=== PATIENT | female | born 1970 | race Caucasian/White ===

== ENCOUNTER 2016-12-30 11:29 | Outpatient (CLI) | payer BC ==
[2015-08-04 13:28] VITALS: BP 138/67
[2016-12-30 11:43] LABS: BASOPHILS % 0.4 (0.0-1.5); EOSINOPHILS % 1.3 % (0.0-6.8); MEAN CORPUSCULAR VOLUME 88.7 fl (80.0-100.0); MONOCYTES % 4.2 % (0.0-11.0); NEUTROPHILS # 4.1 # k/uL (1.4-7.7)
[2016-12-30 12:07] LABS: eGFR (African) > 60; eGFR (Non-African) > 60
[2016-12-30 20:41] LABS: VITAMIN D, 25-HYDROXY 28 ng/mL (30-100)
== END 2016-12-30 11:30 ==
LOC: LAB 11:29
PROVIDERS: ATTEND Physician Assistant
DX: R53.83 Other fatigue (principal); R30.0 Dysuria
CPT/HCPCS: 36415; 80053; 82306; 82607; 84443; 85025; 87086; 87186

== ENCOUNTER 2017-05-03 16:25 | Outpatient (CLI) | payer BC ==
[2015-08-04 13:28] VITALS: BP 138/67
[2017-05-03 16:50] LABS: BASOPHILS % 0.3 (0.0-1.5); EOSINOPHILS % 1.6 % (0.0-6.8); MEAN CORPUSCULAR HEMOGLOBIN 31.1 pg (28.0-34.0); NEUTROPHILS # 4.7 # k/uL (1.4-7.7)
[2017-05-03 17:10] LABS: eGFR (African) > 60; eGFR (Non-African) > 60
== END 2017-05-03 16:26 ==
LOC: LAB 16:25
PROVIDERS: ATTEND Physician Assistant
DX: R10.11 Right upper quadrant pain (principal)
CPT/HCPCS: 36415; 80053; 85025

== ENCOUNTER 2017-05-08 07:46 | Outpatient (CLI) | payer BC ==
[2015-08-04 13:28] VITALS: BP 138/67
--- NOTE | 2017-05-08 13:52 | Diagnostic Imaging Report ---
MARTÍN GONZALES [facility] [address] [facility].[address] [address] Report Submission Date: May 08, 2017 8:42:53 AM SPOT WELDER Patient Study Name: CHRISTINA ESTRELLA Date: May 08, 2017 8:06:01 AM SPOT WELDER Modality Type: US Gender: F Description: : 72 Institution: [facility] Physician: MARTÍN GONZALES Examination: Ultrasound gallbladder History: Epigastric discomfort Findings: Sonographic evaluation of the right upper quadrant demonstrates the gallbladder without stones or sludge. Gallbladder wall measures 2.6 mm. Common bile duct measures 2.0 mm. No intrahepatic biliary dilation. Liver demonstrates increased echogenicity. No mass or cyst. Normal flow on color analysis. Normal Doppler waveforms. Right kidney measures 10.5 cm in length. No cortical mass or cyst. No hydronephrosis. Pancreatic region without gross irregularity. Impression: No gallstone or obstruction. Fatty liver. Electronically signed on May 08, 2017 8:42:53 AM SPOT WELDER by: Kartik RENEE
== END 2017-05-08 07:47 ==
LOC: RAD 07:46
PROVIDERS: ATTEND Physician Assistant
DX: R10.11 Right upper quadrant pain (principal)
CPT/HCPCS: 76705

== ENCOUNTER 2017-05-12 11:40 | Outpatient (CLI) | payer BC ==
[2015-08-04 13:28] VITALS: BP 138/67
[2017-05-12 11:53] LABS: BASOPHILS % 0.3 (0.0-1.5); EOSINOPHILS % 2.7 % (0.0-6.8); MEAN CORPUSCULAR VOLUME 89.6 fl (80.0-100.0); MONOCYTES % 5.3 % (0.0-11.0); NEUTROPHILS # 5.1 # k/uL (1.4-7.7)
[2017-05-12 12:13] LABS: eGFR (African) > 60; eGFR (Non-African) > 60
--- NOTE | 2017-05-12 13:25 | Diagnostic Imaging Report ---
MARTÍN GONZALES [facility] [address] [facility] [address] [place] [address]. [id number] Report Submission Date: May 12, 2017 1:09:19 PM COMPUTERIZED TABLE CUTTER Patient Study Name: CHRISTINA ESTRELLA Date: May 12, 2017 12:12:25 PM COMPUTERIZED TABLE CUTTER Modality Type: CT\SR Gender: F Description: CT ABD & PELVIS W/ CON : 72 Institution: [facility] Physician: MARTÍN GONZALES Examination: CT Abdomen/pelvis History: Abdominal discomfort Comparison exams: None available Technique: CT Abdomen/pelvis with IV protocol. Findings: Liver demonstrates diffuse low attenuation. No central lesion. Spleen , adrenals, pancreas, kidneys and gallbladder are without gross irregularity. No abnormal enhancement. No gallstone. No suspicious renal calcifications. Few cortical cyst. Ureters are nondilated in their course through the abdomen and pelvis. No central calcification. Bladder margin within normal limits. Mild atherosclerotic disease involving the abdominal aorta. No aneurysm. Cardiac silhouette not enlarged. No pericardial effusion. Bowel unopacified limiting evaluation. No abnormal dilation. Stool within the large bowel limiting sensitivity. No mesenteric inflammatory changes or free fluid. Appendix is visualized and is without inflammatory changes. Few sigmoid diverticula. No adjacent inflammation. Osseous structures within normal limits. Lung bases without infiltrate. No effusion. Left lung base granuloma. Impression: No abdominal mass or acute appearing inflammatory process. Fatty liver. No gallstone. No suspicious renal calcifications. No abnormal ureteric dilation. No abnormal bowel dilation or inflammation. Sigmoid diverticulosis. No evidence for acute diverticulitis. Electronically signed on May 12, 2017 1:09:19 PM COMPUTERIZED TABLE CUTTER by: Kartik RENEE
== END 2017-05-12 11:42 ==
LOC: LAB 11:40
PROVIDERS: ATTEND Physician Assistant
DX: R10.9 Unspecified abdominal pain (principal); R11.10 Vomiting, unspecified
CPT/HCPCS: 36415; 74177; 80053; 83690; 85025; Q9967

== ENCOUNTER 2018-06-29 17:14 | Outpatient (CLI) | payer OTHER ==
[2015-08-04 13:28] VITALS: BP 138/67
== END 2018-06-29 17:16 ==
LOC: LABRHC 17:14
PROVIDERS: ATTEND Nurse Practitioner Family
DX: R35.0 Frequency of micturition (principal); N39.0 Urinary tract infection, site not specified
CPT/HCPCS: 87086; 87186

== ENCOUNTER 2018-12-05 13:40 | Outpatient (CLI) | payer OTHER ==
[2015-08-04 13:28] VITALS: BP 138/67
[2018-12-05 14:12] LABS: BASOPHILS % 0.7 % (0.0-1.5); NEUTROPHILS # 5.8 # k/uL (1.4-7.7)
[2018-12-05 14:18] LABS: APPEARANCE,URINE CLEAR (CLEAR); COLOR,URINE YELLOW (YELLOW); OCCULT BLOOD,URINE NEGATIVE (NEGATIVE); PH URINE 5.5 (5.0 - 8.0)
[2018-12-05 14:19] LABS: UROBILINOGEN URINE 0.2 Eu (0.2-1.0)
[2018-12-05 14:29] LABS: eGFR (Non-African) > 60
--- NOTE | 2018-12-05 16:04 | Diagnostic Imaging Report ---
<p>Your browser does not support iframes.</p> OKSANA ONEAL [facility] [address] [facility] [address] [address] Report Submission Date: Dec 05, 2018 3:50:51 PM CDT Patient Study Name: CHRISTINA ESTRELLA Date: Dec 05, 2018 2:12:27 PM CDT Modality Type: DX Gender: F Description: ABDOMEN 1VIEW : 72 Institution: [facility] Physician: OKSANA ONEAL EXAMINATION: ABDOMEN 1VIEW HISTORY: KUB, CONSTIPATION X2 WEEKS, NAUSEA/DIZZINESS X3 DAYS, GALLBLADDER REMOVED X2 MONTHS AGO (Hx) COMPARISON: None FINDINGS: Cholecystectomy clips are noted. There are no abnormally dilated bowel loops. No pathological calcification is seen. The lung bases are clear. The visible osseous structures are intact. IMPRESSION: No evidence of bowel obstruction. Electronically signed on Dec 05, 2018 3:50:51 PM CDT by: Román RENEE
== END 2018-12-05 13:42 ==
LOC: LAB 13:40
PROVIDERS: ATTEND Nurse Practitioner Family
DX: R10.9 Unspecified abdominal pain (principal); R11.2 Nausea with vomiting, unspecified
CPT/HCPCS: 36415; 74018; 80053; 81002; 85025

== ENCOUNTER 2019-05-21 14:13 | Outpatient (CLI) | payer OTHER ==
[2015-08-04 13:28] VITALS: BP 138/67
--- NOTE | 2019-05-21 15:12 | Diagnostic Imaging Report ---
PATIENT MR#: [id number] PATIENT PATIENT NAME: CHRISTINA ESTRELLA DATE OF : 1970 REFERRING PHYSICIAN: LORRIE OROZCO EXAM DATE: 05/21/2019 ACCESSION NUMBER: [id number] EXAM DESCRIPTION: BILAT FEET 3 VIEW CLINICAL HISTORY: RT FOOT BRUISING 2ND AND LT FOOT PAIN COMPARISON: No study for comparison is available at the time of interpretation. TECHNIQUE: DX bilateral feet, 3 views each RIGHT FOOT Osseous structures: The osseous structures are normal with no evidence of fracture or dislocation. Po sterior calcaneal spur at the Achilles tendon insertion, which may indicate Achilles tendinosis. Joint spaces: The bones are well aligned. No articular surface abnormality is noted. Soft tissues: There is normal appearance of the soft tissues with no radiopaque foreign body seen. LEFT FOOT Osseous structures: The osseous structures are normal with no evidence of fracture or dislocation. Po sterior calcaneal spur at the Achilles tendon insertion, which may indicate Achilles tendinosis. Joint spaces: The bones are well aligned. No articular surface abnormality is noted. Soft tissues: There is normal appearance of the soft tissues with no radiopaque foreign body seen. IMPRESSION: 1. No evidence of fracture. 2. Bilateral Achilles tendon enthesophytes. Read by: Dr. Kenneth Medina Transcribed by: Kenneth Medina Transcribed Date: 05/21/2019 3:11:29 PM Electronically signed by: Dr. Kenneth Medina Date signed: 05/21/2019 3:11:29 PM
== END 2019-05-21 14:23 ==
LOC: RAD 14:13
PROVIDERS: ATTEND Podiatrist Foot & Ankle Surgery
DX: S90.31XA Contusion of right foot, initial encounter (principal); M79.672 Pain in left foot; X58.XXXA Exposure to other specified factors, initial encounter